=== PATIENT | male | born 1975 | race Caucasian/White ===

== ENCOUNTER 2024-01-16 09:18 | Emergency (ER) | payer OTHER, SELFPAY ==
[2024-01-16 09:24] VITALS: BP 123/80; PULSE 67; RESP 16; TEMP 36.6; O2SAT 95; BMI 40.3
--- NOTE | 2024-01-16 09:48 | ED_ITS ---
HPI - General Adult General Chief complaint: Skin/Abscess/Foreign Body Stated complaint: tick bite back R shoulder Time Seen by Provider: 01/16/24 09:44 Source: patient Mode of arrival: ambulatory Limitations: no limitations History of Present Illness HPI narrative: 48-year-old male coming in today concerned about a tick bite. Patient believes that he had a wood tick on his back. Unclear how long it was attached for. However he stated that his back was feeling irritated so his took a look at it 2 days ago and found a which she believes was a wood tick attached to the skin. They were able to remove the tick however she stated that the area was quite red and irritated and that red area has since grown. Patient denies any systemic symptoms. Related Data Previous Rx's ?Medication ?Instructions ?Recorded doxycycline hyclate 100 mg capsule 100 mg PO BID 10 days #20 caps 01/16/24 Allergies Allergy/AdvReac Type Severity Reaction Status Date / Time lisinopril Allergy Verified 01/16/24 09:24 Review of Systems Status of ROS: Reports: 10 or more systems reviewed and unremarkable except as noted in History and below [facility] Social History Smoking Status: Never smoker Do you use any of these nicotine containing products: None Second hand tobacco smoke exposure: No How often do you have a drink containing alcohol: monthly or less How many standard drinks containing alcohol do you have on a typical day: 1 or 2 How often do you have six or more drinks on one occasion: Never AUDIT-C Alcohol total score: 1 Non-prescribed substance use: denies use service: No Exam Narrative: Exam Narrative: Overweight, well-developed patient in no acute distress. Alert and oriented. Answers questions appropriately. Mood and affect are appropriate. Thoughts are goal oriented and rational. No tangential or magical thinking noted. Patient speaks in full sentences without needing to catch his breath. HEENT: Normocephalic atraumatic. Pupils are equally round reactive to light. Extraocular muscles are intact. Conjunctivae are moist without any icterus noted. Moist mucous membranes. Skin: On the patient's right mid lateral back he has an area of erythema and induration. It is not a target lesion, there is no central clearing. The area is slightly tender and swollen consistent with cellulitis. Const: Vital Signs, click to edit/add: Vital Signs - 24 hr 01/16/24 09:24 Temperature 97.9 F Pulse Rate [Pulse Oximeter] 67 Respiratory Rate 16 Blood Pressure [Le ft Upper Arm] 123/80 Pulse Oximetry 95 Oxygen Delivery Me thod Room Air Course Vital Signs Vital signs: Initial Vital Signs Temperature 97.9 F 01/16/24 09:24 Temperature Source Temporal Artery Scan 01/16/24 09:24 Pulse Rate 67 01/16/24 09:24 Pulse Rhythm Regular 01/16/24 09:24 Respiratory Rate 16 01/16/24 09:24 Blood Pressure 123/80 01/16/24 09:24 Blood Pressure Mean 94 01/16/24 09:24 Blood Pressure Position Sitting 01/16/24 09:24 Pulse Oximetry 95 01/16/24 09:24 Oxygen Delivery Method Room Air 01/16/24 09:24 Vital Signs Temperature 97.9 F 01/16/24 09:24 Pulse Rate 67 01/16/24 09:24 Respiratory Rate 16 01/16/24 09:24 Blood Pressure 123/80 01/16/24 09:24 Pulse Oximetry 95 01/16/24 09:24 Oxygen Delivery Method Room Air 01/16/24 09:24 Temperature 97.9 F 01/16/24 09:24 Pulse Rate 67 01/16/24 09:24 Respiratory Rate 16 01/16/24 09:24 Blood Pressure 123/80 01/16/24 09:24 Pulse Oximetry 95 01/16/24 09:24 Oxygen Delivery Method Room Air 01/16/24 09:24 Medical Decision Making [facility] Narrative Medical decision making narrative: 48-year-old male with an area of cellulitis on his back after a tick bite. If it was indeed a would take there is no concern for Lyme however we can not be 100% sure. Patient's also cannot describe if the tick was engorged or not. Because of this we will treat with doxycycline for 10 days -this should cover cellulitis and Lyme disease. Discharge Plan Discharge Clinical Impression: Cellulitis, Tick bite Patient Disposition: Home, Self-Care Condition: Stable Additional Instructions: Take all antibiotics as prescribed. Follow-up with your primary care provider if you feel that you are not improving. Prescriptions: New doxycycline hyclate 100 mg capsule 100 mg PO BID 10 Days Qty: 20 0RF Follow Up/Referrals: Eber Tinajero MD [Primary Care Provider] - Stand Alone Forms: [employer], [employer] Info Instructions
== END 2024-01-16 10:05 | disposition home or self-care (01) ==
LOC: ED 10:02
PROVIDERS: Emergency Provider Family Medicine; PCP Surgery
DX: T63.481A Toxic effect of venom of other arthropod, accidental (unintentional), initial encounter (principal); L03.113 Cellulitis of right upper limb
CPT/HCPCS: 99283; 99284